=== PATIENT | female | born 1990 | race American Indian/Alaskan Native ===

== ENCOUNTER → 2020-11-19 | Outpatient (CLI) | payer OTHER | END | disposition home or self-care (01) | LOC: PPH VACUNA 08:00 | PROVIDERS: ATTEND Emergency Medicine Pediatric Emergency Medicine | DX: Z23 Encounter for immunization (principal) ==

== ENCOUNTER 2021-11-09 09:35 | Outpatient (CLI) | payer OTHER | END 2021-11-09 09:40 | disposition home or self-care (01) | LOC: PPH VACUNA 09:35 | PROVIDERS: ATTEND Emergency Medicine Pediatric Emergency Medicine | DX: Z23 Encounter for immunization (principal) ==